=== PATIENT | female | born 1970 | race Caucasian/White ===

== ENCOUNTER → 2016-09-17 | Outpatient (CLI) | payer BC ==
[~2016-09-17] MED LIST: ALL180 PO; BUPR-83 PO; GABA-112 PO; HYDR-5688 PO; METR0.754 PO; RIZA10TA18 PO; RIZA10TA19 PO; TRAZ50TA35 PO
--- NOTE | 2016-09-17 14:17 | DIAGNOSTIC IMAGING REPORT ---
LEFT HAND MIN 3 VIEWS CLINICAL HISTORY: LEFT HAND PAIN COMPARISON: None. DISCUSSION: No acute fractures or dislocations are visualized. There are no erosive or destructive changes. There are mild osteoarthritic changes at the level the first carpometacarpal joint. IMPRESSION: Mild osteoarthritic changes at the level the first carpometacarpal joint. No evidence of fracture. No evidence of erosive disease. Electronically signed by: Janes Mustafa M.D. 09/17/2016 2:16 PM Dictated Date/Time: 09/17/2016 2:15 PM
== END | disposition home or self-care (01) ==
LOC: C.RDSM 15:40
PROVIDERS: ATTEND Physician Assistant
DX: M79.642 Pain in left hand (principal)

== ENCOUNTER → 2016-09-29 | Outpatient (CLI) | payer BC ==
--- NOTE | 2016-09-30 13:06 | MAMMOGRAPHY REPORT ---
BILATERAL DIGITAL SCREENING MAMMOGRAM TOMOSYNTHESIS WITH CAD: 09/29/2016 CLINICAL HISTORY: Routine screening. Patient has no complaints. TECHNIQUE: Breast tomosynthesis in addition to standard 2D mammography was performed. Current study was also evaluated with a Computer Aided Detection (CAD) system. COMPARISON: Comparison is made to exams dated: 09/25/2015 mammogram - [facility], 09/04 mammogram, 08/03/2013 mammogram, 08/05/2012 mammogram, 07/22/2011 mammogram, and 07/16/2010 mammogra m - [facility]. BREAST COMPOSITION: The tissue of both breasts is extremely dense, which lowers the sensitivity of m ammography. FINDINGS: The parenchymal pattern is unchanged. No developing mass, architectural distortion or clus ter of suspicious microcalcifications is seen in either breast. IMPRESSION: ACR BI-RADS CATEGORY 2: BENIGN There is no mammographic evidence of malignancy. A 1 year screening mammogram is recommended. The pa tient will receive written notification of the results. Approximately 10% of breast cancers are not detected with mammography. A negative mammographic report should not delay biopsy if a clinically suggestive mass is present. Deena Hoffmann M.D. ay/:09/29/2016 16:30:44 Director Of Philanthropy: Megan VELARDE(Stephanie)(M), [facility] letter sent: Normal 1/2 BI-RADS Code: ACR BI-RADS Category 2: Benign
== END | disposition home or self-care (01) ==
LOC: C.MAMM 12:20
PROVIDERS: ATTEND Obstetrics & Gynecology
DX: Z12.31 Encounter for screening mammogram for malignant neoplasm of breast (principal)